=== PATIENT | female | born 1960 | race Caucasian/White ===

== ENCOUNTER → 2016-09-19 | Outpatient (CLI) | payer BC | LOC: GMAJ 10:56 | PROVIDERS: ATTEND Family Medicine | DX: L65.9 Nonscarring hair loss, unspecified (principal) ==

== ENCOUNTER → 2017-07-21 | Outpatient (CLI) | payer BC ==
--- NOTE | 2017-07-23 14:49 | MAM ---
EXAM DESCRIPTION: 3D Screening BILATERAL : Digital Mammography. CLINICAL HISTORY: 57 years Female SCREENING no complaints. No family history breast cancer. Postmenopausal. Has taken HRT less than 5 years ago. COMPARISON: 2-D digital screening bilateral study 11/29/2015.. No prior reports available. TECHNIQUE: Bilateral CC and MLO projection full-field images, 3-D tomosynthesis digital mammographic technique. Also bilateral synthesized CC/ MLO full-field images. CAD not utilized. FINDINGS: The breast parenchymal density pattern is: Heterogeneously dense breast tissue, which may obscure small masses. No skin thickening or nipple retraction No focal, stellate mass or density, focal asymmetry , and no suspicious microcalcifications bilaterally. Stable mammograms compared to prior study, taking into account differences in mammographic technique IMPRESSION: BI-RADS CATEGORY: 1 - NEGATIVE FOLLOW UP: Routine digital bilateral screening, one year interval from July 2017. Written communication explaining the findings and follow-up, will be mailed to the patient and referring health care provider. According to the [employer], yearly mammograms are recommended starting at age 40 and continuing as long as a woman is in good health. Any breast change noted on a breast self-exam should be reported promptly to the patient's healthcare provider. Breast MRI is recommended for women with an approximately 20-25% or greater lifetime risk of breast cancer, including women with a strong family history of breast or ovarian cancer and women who have been treated for Hodgkin's disease. A negative mammographic report should not delay tissue diagnosis in patients with significant clinical history or physical findings. Extremely dense breast tissue limits the sensitivity of digital mammography. Electronically signed by: Jose L Dao MD 07/23/2017 2:48 PM [facility]
== END ==
LOC: MAMMO 14:15
PROVIDERS: ATTEND Obstetrics & Gynecology
DX: Z12.31 Encounter for screening mammogram for malignant neoplasm of breast (principal)
CPT/HCPCS: 77063; G0202

== ENCOUNTER → 2017-10-01 | Outpatient (CLI) | payer BC ==
--- NOTE | 2017-10-01 10:02 | RAD ---
EXAM DESCRIPTION: Ankle,Left 3 Views CLINICAL HISTORY: 57 years, Female, left ankle pain COMPARISON: None available TECHNIQUE: AP/lateral/oblique of the left ankle Findings/impression: No radiographic evidence for acute displaced fracture. Ankle mortise appears maintained. No radiopaque foreign bodies. Mild ankle joint effusion anteriorly and posteriorly. Soft tissue swelling about the medial aspect of the left ankle. Electronically signed by: Clif Leon MD 10/01/2017 10:01 AM [facility]
== END | disposition home or self-care (01) ==
LOC: RAD 08:16
PROVIDERS: ATTEND Orthopaedic Surgery
DX: M25.572 Pain in left ankle and joints of left foot (principal)

== ENCOUNTER → 2017-10-07 | Outpatient (CLI) | payer BC ==
--- NOTE | 2017-10-07 11:22 | CT ---
EXAM DESCRIPTION: LOWER EXTREMITY LEFT: Computed Tomography. CLINICAL HISTORY: FRACTURE OF LOWER END OF LEFT TIBIA COMPARISON: None Available. TECHNIQUE: Spiral, axial 2.5 mm scans through the left ankle without contrast. Coronal and sagittal 2.0 mm reconstructions. Total Exam DLP: 140.56 mGy-cm. This exam was performed according to our departmental CT dose-optimization program which includes automated exposure control, adjustment of the mA and/or kV according to patient size and/or use of iterative reconstruction technique; to reduce radiation dose to as low as reasonably achievable (ALARA). FINDINGS: Oblique fracture through the anterior tubercle of the lateral condyle of the distal tibia entering the horizontal recess of the ankle mortise. Fracture widens from posterior to anterior with minimal lateral displacement. Inferior displacement is present: joint space is 1.2 mm between anterior lateral talus and the fragment and 1.7 mm between the mid lateral talus and the intact tibia. Anterior displacement of the fragment also present; more superior than at the cortex. No radiodense loose bodies in the medial and lateral gutters or the horizontal recess. Medial malleolus is intact. Nondisplaced fracture of the anterior lateral tip of the lateral malleolus. Talus is intact. Medial and posterior subtalar joints are unremarkable. Minimal narrowing of the inferior talonavicular joint and the inferior calcaneocuboid joint without spur formation. No significant soft tissue swelling. IMPRESSION: 1. Displaced fracture of the anterior tubercle of the lateral condyle of the tibia with anterior, lateral, and inferior displacement. No radiodense fragments in the mortise gutters or the horizontal recess. 2. Tibial plafond and medial malleolus are intact. Nondisplaced fracture of the anterior lateral aspect of the tip of the lateral malleolus. Electronically signed by: Jose L Dao MD 10/07/2017 11:21 AM [facility]
== END ==
LOC: CT 08:00
PROVIDERS: ATTEND Orthopaedic Surgery
DX: S82.302A Unspecified fracture of lower end of left tibia, initial encounter for closed fracture (principal); S82.65XA Nondisplaced fracture of lateral malleolus of left fibula, initial encounter for closed fracture

== ENCOUNTER → 2017-10-23 | Outpatient (CLI) | payer BC ==
--- NOTE | 2017-10-26 08:22 | RAD ---
EXAM DESCRIPTION: Ankle,Left 3 Views CLINICAL HISTORY: 57 years, Female, CLOSED FX OF DISTAL TIBIA COMPARISON: October 01, 2017 TECHNIQUE: AP/lateral/oblique of the left ankle FINDINGS: There is a nondisplaced fracture of the lateral aspect of the tibial epiphysis extending into the tibial plafond. This is best seen on the CT from October 07 but is visible on the plain radiographs. No displacement or angulation observed. Mortise joint shows normal relationship. IMPRESSION: 1. Subtle nondisplaced intra-articular fracture lateral distal tibia Electronically signed by: Arjun Jones MD 10/26/2017 8:21 AM [facility]
== END ==
LOC: RAD 07:57
PROVIDERS: ATTEND Orthopaedic Surgery
DX: S82.302D Unspecified fracture of lower end of left tibia, subsequent encounter for closed fracture with routine healing (principal)

== ENCOUNTER → 2017-11-30 | Outpatient (CLI) | payer BC ==
--- NOTE | 2017-11-30 14:05 | RAD ---
EXAM DESCRIPTION: Ankle,Left 3 Views CLINICAL HISTORY: 57 years, Female, CLOSED FRACTURE DISTAL TIBIA COMPARISON: Previous study October 23, 2017 TECHNIQUE: AP/lateral/oblique of the Right or left ankle FINDINGS: Fracture of the lateral distal tibia which extends into the ankle joint is difficult to see due to overlap by the fibula. This was better seen on the previous CT of the ankle from October 07, 2017 There is no soft tissue swelling laterally or medially. Medial and lateral malleolus are intact. Intact dome of the talus. Lateral view shows no evidence of fracture of the body of the talus or calcaneus. No calcaneal spurring is seen. Question small ankle joint effusion. IMPRESSION: Healing fracture of the lateral distal left tibia. Electronically signed by: Michael Hector MD 11/30/2017 2:04 PM CDT
== END ==
LOC: RAD 07:55
PROVIDERS: ATTEND Orthopaedic Surgery
DX: S82.302D Unspecified fracture of lower end of left tibia, subsequent encounter for closed fracture with routine healing (principal)